=== PATIENT | female | born 1960 | race Caucasian/White ===

== ENCOUNTER 2016-07-02 11:47 | Emergency (ER) | payer OTHER ==
--- NOTE | 2016-07-02 13:09 | ED NURSING NOTES ---
Clinical Report - Nurses Located Within [facility] [address] [place] [address] 07/02/2016 11:53 Patient: RILEY BOSS TRIAGE Triage time 1201 PM. Acuity: LEVEL 3. Chief Complaint: COUGH, RUNNY NOSE, FEVER and SORE THROAT. Alert. No acute distress. ALL COMA SCORE: [place] Coma Scale: 15- eyes open spontaneously (4); best verbal response- oriented x 4 (5); best motor response- obeys commands (6). --12:17 Pennie Bright R.N. 12:01 07/02/16. BP: 127/71 (regular adult cuff) taken on the left arm, via an automated monitor, while lying. HR: 87. RR: 18. O2 saturation: 99% on room air. Temp: 97.9 F (oral). Pain level now: 05/27. --12:17 Pennie Bright R.N. Weight: 59.1 kg. Height/Length: 62 inches. BMI: 23.9. --12:04 Pennie Bright R.N. Medications None. --12:05 Pennie Bright R.N. Allergies Ultram. --12:06 Pennie Bright R.N. Codeine. --12:06 Pennie Bright R.N. Medication/allergy information source: the patient. --12:17 Pennie Bright R.N. History Arrived by private vehicle. Historian: patient. Accompanied by family. Primary physician (Dr. Park _[facility]). ( Pt states that has felt with chills, body aches, productive cough (yellow-green), fevers, H/A, ear aches, tired. Visiting here for daughter deployment, originally from [place]. Pt states that granddaughter was confirmed to have pneumonia 2 weeks ago and lives with her. Pt does have an inhaler that her primary doctor gave her due to wheezing. Here for further evaluation). Onset was gradual. Symptoms are constant and still present (1-2 weeks). She has had a nasal discharge, chest congestion, chills, fatigue and a headache. She has had sinus pain. Reports muscle aches. Treatment SERVICE TECH/WELDER: None. PAST MEDICAL HX: The patient has had contact with a sick family member with confirmed. Symptoms of the sick contact include fever. They have had similar symptoms. Immunizations: status is unknown. The patient has had a hysterectomy. Sexual history - sexually active. No contraception. SOCIAL HX: Light tobacco smoker- less than 1/2 a pack per day. Occasional alcohol use. History of drug use: marijuana. Recently used drugs yesterday. No infectious disease exposure. ABUSE ASSESSMENT: No report of abuse. SELF HARM ASSESSMENT: A self harm assessment was performed. The patient answered "no" to the question "Do you have thoughts of harming or killing yourself?" and "Have you recently had thoughts about harming or killing others?". FALL RISK ASSESSMENT: Fall risk assessment completed. No fall risk identified. NUTRITIONAL RISK ASSESSMENT: The nutritional risk assessment revealed no deficiencies. FUNCTIONAL ASSESSMENT: Functional assessment: no impairments noted. LEARNING NEEDS ASSESSMENT: The learning needs assessment revealed no barriers. SKIN INTEGRITY ASSESSMENT: Skin integrity risk assessment completed. No skin integrity risk identified. --12:17 Pennie Bright R.N. PROBLEMS: Diabetes Mellitus. --12:07 Pennie Bright R.N. Bronchitis. Strep Throat. --12:19 Pennie Bright R.N. ADDITIONAL SURGERIES: Collar bone injury. Knee Surgery. Total hysterectomy with removal of both tubes and ovaries. Wrist surgery. --12:07 Pennie Bright R.N. Interventions ID band on patient. --12:17 Pennie Bright R.N. PHYSICAL ASSESSMENT Ambulatory to room. GENERAL / NEURO / PSYCH: Alert. Oriented X 4. HEENT: Right maxillary and left maxillary sinus tenderness present. Ears within normal limits. Runny nose. Nares within normal limits. Pharynx within normal limits. Voice within normal limits. Mucous membranes are pink. RESPIRATORY: Respirations not labored. Breath sounds within normal limits. CVS: Capillary refill less than 2 seconds. SKIN: Skin is warm and dry. Normal skin turgor. --12:25 Pennie Bright R.N. NURSING PROGRESS NOTES The initial plan of care for this patient has been created This plan of care was discussed with the patient. Patient gowned. Warming measures: blanket applied. Reassurance given. Patient ID band checked for patient name, birthdate and medical record number. Flu swab obtained by RN via nasal swab. Labeled in the presence of the patient and sent to lab. Patient ID band checked for patient name, birthdate and medical record number: patient confirmed. Throat swab obtained for rapid strep; labeled in the presence of the patient and sent to lab. Two patient identifiers checked. Call light placed in reach. Side rails up x 1. Bed placed in lowest position. Patient ready for evaluation- ED physician notified. --12:22 Pennie Bright R.N. DISPOSITION / DISCHARGE Departure time: 1341 PM. Condition at departure: unchanged and stable. The goals identified in the patient's plan of care were met. No learning barriers present. Discharge instructions provided and reviewed with the patient. Reviewed medication(s) side effects, precautions, dosing and course information. Prescription(s) given to the patient. Patient verbalized understanding. Written instructions provided in Georgian. The patient was discharged by the nurse practitioner. She was discharged home and accompanied by family. She left the Emergency Department via private vehicle. Family member driving. FALL RISK ASSESSMENT: Fall risk assessment completed. No fall risk identified. ALL COMA SCORE: All Coma Scale: 15- eyes open spontaneously (4); best verbal response- oriented x 4 (5); best motor response- obeys commands (6). --13:41 Pennie Bright R.N. 13:38 07/02/16. BP: 115/74. HR: 86. RR: 15. O2 saturation: 98%. Temp: 98.1 F. Pain level now: 04/26. --13:41 Pennie Bright R.N. Locked/Released at 07/02/2016 13:41 by Pennie Bright R.N.
--- NOTE | 2016-07-02 13:09 | ED CLINICAL REPORT ---
Clinical Report - Physicians/Mid Levels [facility] [address] [place] [address] 07/02/2016 11:53 Patient: RILEY BOSS Time Seen: 13:01; initial patient contact, initial documentation, patient care assumed. Arrived- By private vehicle. Historian- patient. HISTORY OF PRESENT ILLNESS Chief Complaint: COUGH and FEVER. This started about 2 weeks ago and is still present. It was gradual in onset. The illness is described as moderate. The patient has had a cough, a sore throat, nasal congestion, a subjective fever and chills. She has had muscle aches, a nasal discharge and ear pain. She has had moderate amounts of thick, yellow sputum. No difficulty breathing, chest discomfort or pain, sinus pressure or sinus drainage. (pt stated she had her inhaler and had plenty of refills on it, also admitted to not taking anything otc for her s/s). Additional history - The patient has had contact with a sick individual. She has had recent travel by car in the last week- [facility]. No recent foreign travel or travel in endemic area. Did not participate in outdoor activities. Similar symptoms previously: Occasionally, as bad. Recent medical care: Not recently seen/assessed. REVIEW OF SYSTEMS All systems otherwise negative, except as recorded above. PAST HISTORY See nurses notes. PROBLEMS: Diabetes Mellitus. --12:07 Pennie Bright R.N. Bronchitis. Strep Throat. --12:19 Pennie Bright R.N. ADDITIONAL SURGERIES: Collar bone injury. Knee Surgery. Total hysterectomy with removal of both tubes and ovaries. Wrist surgery. --12:07 Pennie Bright R.N. SOCIAL HISTORY Light tobacco smoker. Occasional alcohol use. History of occasional drug use: marijuana. Recently used drugs yesterday. Not exposed to second-hand smoke at home. Is an out of state resident. Visiting locally. FAMILY HISTORY Negative. ADDITIONAL NOTES The nursing notes have been reviewed with agreement regarding the chief complaint, HPI, ROS, PMH and patient medications and allergies. PHYSICAL EXAM Vital Signs: 07/02/2016 12:01 BP: 127/71. HR: 87. RR: 18. O2 saturation: 99%. Temp: 97.9 F. Pain level now: 10. Have been reviewed as normal and appear to be correct. Appearance: Alert. No acute distress. Eyes: Pupils equal, round and reactive to light. Eyes normal inspection. ENT: Ears normal. Nose normal. Pharynx normal. Uvula midline. Neck: Normal inspection. Neck supple. CVS: Normal heart rate and rhythm. Heart sounds normal. Pulses normal. Respiratory: No respiratory distress. Breath sounds normal. Back: Normal inspection. Skin: Skin warm and dry. Normal skin color. No rash. Normal skin turgor. Extremities: Extremities exhibit normal ROM. No lower extremity edema. Neuro: Oriented X 3. No motor deficit. No sensory deficit. PROGRESS AND PROCEDURES Patient counseled in person regarding the patient's stable condition and diagnosis. Differential Diagnosis: Other possible considerations: flu, uri, viral illness, copd, emphysema, bronchitis, pneumonia. Above considerations are based on history and physical exam. Differential diagnosis was discussed with patient. Disposition: Discharged home in good and unchanged condition (13:09). Condition: good and stable. CLINICAL IMPRESSION Acute mucopurulent bronchitis. INSTRUCTIONS Drink plenty of fluids for the next 24 hours until better. (over the counter cough medicine, and continue using inhaler as needed, as discussed). Warnings: GENERAL WARNINGS: Return or contact your physician immediately if your condition worsens or changes unexpectedly, if not improving as expected, or if other problems arise. Specifically return if problem worsens. Prescription Medications: Zithromax 250 mg tablets: take 2 orally today, followed by 1 daily for the next 4 days. No refills. Substitution is permissible. Follow-up: Follow up with your doctor in about three days even if well. Call for an appointment. Summary of care provided to patient. Understanding of the discharge instructions verbalized by patient. (Electronically signed by Milvia Melendez A.R.N.P. 07/02/2016 14:16)
--- NOTE | 2016-07-02 14:16 | ED DISCHARGE INSTRUCTIONS ---
Patient: RILEY BOSS General Instructions [facility] VisitID: [id number] [place] [address] 55y, F Registration Date/Time: 07/02/2016 INSTRUCTIONS Drink plenty of fluids for the next 24 hours until better. (over the counter cough medicine, and continue using inhaler as needed, as discussed). Warnings: GENERAL WARNINGS: Return or contact your physician immediately if your condition worsens or changes unexpectedly, if not improving as expected, or if other problems arise. Specifically return if problem worsens. Prescription Medications: Zithromax 250 mg tablets: take 2 orally today, followed by 1 daily for the next 4 days. No refills. Substitution is permissible. Follow-up: Follow up with your doctor in about three days even if well. Call for an appointment. Summary of care provided to patient. Understanding of the discharge instructions verbalized by patient. ADDITIONAL INFORMATION Bronchitis (Adult: Abx Tx) BRONCHITIS is an infection of the air passages (bronchial tubes). It often occurs during the common cold. Symptoms include cough with mucus (phlegm) and low-grade fever. Bronchitis usually lasts 7-14 days. Mild cases can be treated with simple home remedies. More severe infection is treated with an antibiotic. Home Care: If symptoms are severe, rest at home for the first 2-3 days. When you resume activity, don't let yourself get too tired. Do not smoke. Avoid being exposed to the smoke of others. You may use acetaminophen (Tylenol) or ibuprofen (Motrin, Advil) to control fever or pain, unless another medicine was prescribed for this. [NOTE: If you have chronic liver or kidney disease or ever had a stomach ulcer or GI bleeding, talk with your doctor before using these medicines.] Your appetite may be poor, so a light diet is fine. Avoid dehydration by drinking 6-8 glasses of fluids per day (water, soft, drinks, juices, tea, soup, etc.). Extra fluids will help loosen secretions in the lungs. [id number] cough medicines that containdextromethorphan(such as Robitussin DM) and decongestants (Actifed or Sudafed) may help relieve cough and congestion. [NOTE: Do not use decongestants if you have high blood pressure.] Finish all antibiotic medicine, even if you are feeling better after only a few days. Follow Up with your doctor or as directed if you dont start to feel better after three days. [NOTE: If you are age 65 or older, or if you have chronic asthma or COPD, we recommend a PNEUMOCOCCAL VACCINATION every five years and a yearly INFLUENZAVACCINATION (FLU-SHOT) every . Ask your doctor about this. If you had an X-ray, a radiologist will review it. You will be notified of any new findings that may affect your care.] Get Prompt Medical Attention if any of the following occur: Fever over 100.4F (38.0C) for more than three days Trouble breathing, wheezing or pain with breathing Coughing up blood or increased amounts of colored sputum Weakness, drowsiness, headache, facial pain, ear pain or a stiff neck Azithromycin Oral tablet What is this medicine? AZITHROMYCIN (az ith robin MYE sin) is a macrolide antibiotic. It is used to treat or prevent certain kinds of bacterial infections. It will not work for colds, flu, or other viral infections. How should I use this medicine? Take this medicine by mouth with a full glass of water. Follow the directions on the prescription label. The tablets can be taken with food or on an empty stomach. If the medicine upsets your stomach, take it with food. Take your medicine at regular intervals. Do not take your medicine more often than directed. Take all of your medicine as directed even if you think your are better. Do not skip doses or stop your medicine early. Talk to your college coach regarding the use of this medicine in children. Special care may be needed. What side effects may I notice from receiving this medicine? Side effects that you should report to your doctor or health inpatient care manager rn as soon as possible: allergic reactions like skin rash, itching or hives, swelling of the face, lips, or tongue confusion, nightmares or hallucinations dark urine difficulty breathing hearing loss irregular heartbeat or chest pain pain or difficulty passing urine redness, blistering, peeling or loosening of the skin, including inside the mouth white patches or sores in the mouth yellowing of the eyes or skin Side effects that usually do not require medical attention (report to your doctor or health inpatient care manager rn if they continue or are bothersome): diarrhea dizziness, drowsiness headache stomach upset or vomiting tooth discoloration vaginal irritation What may interact with this medicine? Do not take this medicine with any of the following medications: lincomycin This medicine may also interact with the following medications: amiodarone antacids cyclosporine digoxin magnesium nelfinavir phenytoin warfarin What if I miss a dose? If you miss a dose, take it as soon as you can. If it is almost time for your next dose, take only that dose. Do not take double or extra doses. Where should I keep my medicine? Keep out of the reach of children. Store at room temperature between 15 and 30 degrees C (59 and 86 degrees F). Throw away any unused medicine after the expiration date. What should I tell my health care provider before I take this medicine? They need to know if you have any of these conditions: kidney disease liver disease irregular heartbeat or heart disease an unusual or allergic reaction to azithromycin, erythromycin, other macrolide antibiotics, foods, dyes, or preservatives or trying to get breast-feeding What should I watch for while using this medicine? Tell your doctor or health inpatient care manager rn if your symptoms do not improve. Do not treat diarrhea with over the counter products. Contact your doctor if you have diarrhea that lasts more than 2 days or if it is severe and watery. This medicine can make you more sensitive to the sun. Keep out of the sun. If you cannot avoid being in the sun, wear protective clothing and use sunscreen. Do not use sun lamps or tanning beds/booths. You have been given the following additional information: Bronchitis, Antiobiotic Treatment (Adult) Azithromycin Oral tablet (Electronically signed by Milvia Melendez A.R.N.P. 07/02/2016 14:16)
--- NOTE | 2016-07-02 14:16 | ED MED RECONCILIATION SUMMARY ---
Patient: RILEY BOSS Medication Reconciliation Report [facility] VisitID: [id number] [address] [place] [address] 55y, F Registration Date/Time: 07/02/2016 Weight: 59.1 kg Height/Length: 62 in. BMI: 23.9 ALLERGIES: Codeine, Ultram The patient's Home Medications are listed below: NONE. The source(s) of the original Home Medication information: patient The following Medications were given to the patient in the Emergency Department: None. The following Medications were prescribed to the patient: Zithromax 250 mg tablets: take 2 orally today, followed by 1 daily for the next 4 days. No refills. Substitution is permissible. -- Milvia Melendez A.R.N.P.
--- NOTE | 2016-07-02 14:16 | ED MED RECONCILIATION SUMMARY ---
Patient: RILEY BOSS Medication Reconciliation Report [facility] VisitID: [id number] [address] [place] [address] 55y, F Registration Date/Time: 07/02/2016 Weight: 59.1 kg Height/Length: 62 in. BMI: 23.9 ALLERGIES: Codeine, Ultram The patient's Home Medications are listed below: NONE. The source(s) of the original Home Medication information: patient The following Medications were given to the patient in the Emergency Department: None. The following Medications were prescribed to the patient: Zithromax 250 mg tablets: take 2 orally today, followed by 1 daily for the next 4 days. No refills. Substitution is permissible. -- Milvia Melendez A.R.N.P.
--- NOTE | 2016-07-02 14:16 | ED MAR SUMMARY ---
..... Medication Administration Record [facility] [address], [place] [id number] Patient: RILEY BOSS Visit ID: [id number] 55y, F Weight: 59.1 kg Height/Length: 62 in BMI: 23.9 ALLERGIES: Codeine, Ultram
--- NOTE | 2016-07-02 14:16 | ED MAR SUMMARY ---
..... Medication Administration Record [facility] [address] [place], [place] [id number] Patient: RILEY BOSS Visit ID: [id number] 55y, F Weight: 59.1 kg Height/Length: 62 in BMI: 23.9 ALLERGIES: Codeine, Ultram
--- NOTE | 2016-07-02 14:16 | ED DISCHARGE INSTRUCTIONS ---
Patient: RILEY BOSS General Instructions [facility] VisitID: [id number] [place] [address] 55y, F Registration Date/Time: 07/02/2016 INSTRUCTIONS Drink plenty of fluids for the next 24 hours until better. (over the counter cough medicine, and continue using inhaler as needed, as discussed). Warnings: GENERAL WARNINGS: Return or contact your physician immediately if your condition worsens or changes unexpectedly, if not improving as expected, or if other problems arise. Specifically return if problem worsens. Prescription Medications: Zithromax 250 mg tablets: take 2 orally today, followed by 1 daily for the next 4 days. No refills. Substitution is permissible. Follow-up: Follow up with your doctor in about three days even if well. Call for an appointment. Summary of care provided to patient. Understanding of the discharge instructions verbalized by patient. ADDITIONAL INFORMATION Bronchitis (Adult: Abx Tx) BRONCHITIS is an infection of the air passages (bronchial tubes). It often occurs during the common cold. Symptoms include cough with mucus (phlegm) and low-grade fever. Bronchitis usually lasts 7-14 days. Mild cases can be treated with simple home remedies. More severe infection is treated with an antibiotic. Home Care: If symptoms are severe, rest at home for the first 2-3 days. When you resume activity, don't let yourself get too tired. Do not smoke. Avoid being exposed to the smoke of others. You may use acetaminophen (Tylenol) or ibuprofen (Motrin, Advil) to control fever or pain, unless another medicine was prescribed for this. [NOTE: If you have chronic liver or kidney disease or ever had a stomach ulcer or GI bleeding, talk with your doctor before using these medicines.] Your appetite may be poor, so a light diet is fine. Avoid dehydration by drinking 6-8 glasses of fluids per day (water, soft, drinks, juices, tea, soup, etc.). Extra fluids will help loosen secretions in the lungs. Ehiu-gcg-puudplo cough medicines that containdextromethorphan(such as Robitussin DM) and decongestants (Actifed or Sudafed) may help relieve cough and congestion. [NOTE: Do not use decongestants if you have high blood pressure.] Finish all antibiotic medicine, even if you are feeling better after only a few days. Follow Up with your doctor or as directed if you dont start to feel better after three days. [NOTE: If you are age 65 or older, or if you have chronic asthma or COPD, we recommend a PNEUMOCOCCAL VACCINATION every five years and a yearly INFLUENZAVACCINATION (FLU-SHOT) every . Ask your doctor about this. If you had an X-ray, a radiologist will review it. You will be notified of any new findings that may affect your care.] Get Prompt Medical Attention if any of the following occur: Fever over 100.4F (38.0C) for more than three days Trouble breathing, wheezing or pain with breathing Coughing up blood or increased amounts of colored sputum Weakness, drowsiness, headache, facial pain, ear pain or a stiff neck Azithromycin Oral tablet What is this medicine? AZITHROMYCIN (az ith robin MYE sin) is a macrolide antibiotic. It is used to treat or prevent certain kinds of bacterial infections. It will not work for colds, flu, or other viral infections. How should I use this medicine? Take this medicine by mouth with a full glass of water. Follow the directions on the prescription label. The tablets can be taken with food or on an empty stomach. If the medicine upsets your stomach, take it with food. Take your medicine at regular intervals. Do not take your medicine more often than directed. Take all of your medicine as directed even if you think your are better. Do not skip doses or stop your medicine early. Talk to your automatic equipment technician regarding the use of this medicine in children. Special care may be needed. What side effects may I notice from receiving this medicine? Side effects that you should report to your doctor or health assurance services manager health care as soon as possible: allergic reactions like skin rash, itching or hives, swelling of the face, lips, or tongue confusion, nightmares or hallucinations dark urine difficulty breathing hearing loss irregular heartbeat or chest pain pain or difficulty passing urine redness, blistering, peeling or loosening of the skin, including inside the mouth white patches or sores in the mouth yellowing of the eyes or skin Side effects that usually do not require medical attention (report to your doctor or health assurance services manager health care if they continue or are bothersome): diarrhea dizziness, drowsiness headache stomach upset or vomiting tooth discoloration vaginal irritation What may interact with this medicine? Do not take this medicine with any of the following medications: lincomycin This medicine may also interact with the following medications: amiodarone antacids cyclosporine digoxin magnesium nelfinavir phenytoin warfarin What if I miss a dose? If you miss a dose, take it as soon as you can. If it is almost time for your next dose, take only that dose. Do not take double or extra doses. Where should I keep my medicine? Keep out of the reach of children. Store at room temperature between 15 and 30 degrees C (59 and 86 degrees F). Throw away any unused medicine after the expiration date. What should I tell my health care provider before I take this medicine? They need to know if you have any of these conditions: kidney disease liver disease irregular heartbeat or heart disease an unusual or allergic reaction to azithromycin, erythromycin, other macrolide antibiotics, foods, dyes, or preservatives or trying to get breast-feeding What should I watch for while using this medicine? Tell your doctor or health assurance services manager health care if your symptoms do not improve. Do not treat diarrhea with over the counter products. Contact your doctor if you have diarrhea that lasts more than 2 days or if it is severe and watery. This medicine can make you more sensitive to the sun. Keep out of the sun. If you cannot avoid being in the sun, wear protective clothing and use sunscreen. Do not use sun lamps or tanning beds/booths. You have been given the following additional information: Bronchitis, Antiobiotic Treatment (Adult) Azithromycin Oral tablet (Electronically signed by Milvia Melendez A.R.N.P. 07/02/2016 14:16)
== END 2016-07-02 13:40 | disposition home or self-care (01) ==
LOC: ED SRH 11:47
DX: J20.9 Acute bronchitis, unspecified (principal); E11.9 Type 2 diabetes mellitus without complications; Z88.5 Allergy status to narcotic agent; F17.210 Nicotine dependence, cigarettes, uncomplicated